=== PATIENT | male | born 1975 | race Caucasian/White ===

== ENCOUNTER 2016-08-19 08:18 | Inpatient (IN) | payer OTHER ==
--- NOTE | 2016-08-19 16:49 | PDOREHIP ---
Admission [facility] - Admission - 3 Day Assessment Period Admission Date/Day 1: 08/19/16 Day 2: 08/20/16 Day 3: 08/21/16 - Active Diagnoses Comorbidities and Co-existing Conditions at Admission: 79511. None of the Above - Skin Conditions Unhealed Pressure Ulcer (1 or more/Stage 1 or >)-Admission: 0. No
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
[2016-08-19] MEDS: ACETAMINOPHEN 325 MG TAB PO SCH (18:36)
[2016-08-19] MEDS: ATORVASTATIN CALCIUM 20 MG TAB PO SCH (21:28)
[2016-08-19] MEDS: LORazepam 0.5 MG TAB PO PRN (22:11)
[2016-08-20] MEDS: ACETAMINOPHEN 325 MG TAB PO SCH ×3 (06:55→13:10)
[2016-08-20] MEDS: ENOXAPARIN 40 MG/0.4 ML SYR SC SCH (08:37)
--- NOTE | 2016-08-20 11:01 | SOAPPROG ---
SOAP Progress Note Assessment/Plan: Assessment: * Cerebrovascular accident in the right caudate, centrum semiovale, internal capsule and basal ganglia on 08/15 or 08/16/2016, with left-sided weakness. Physical and occupational therapies to optimize mobility and activities of daily living. * Possible cognitive involvement to be assessed and treated per Speech and Language Pathology. * Polycythemia. He received phlebotomy in the hospital but had a rapid return to his polycythemic state. Risk for thromboembolism is addressed with aspirin. Could be due to R-L shunt.. Check overnight oximetry to evaluate for hypoxia. Though he is a muscular man, he shows no other signs of androgen excess, including no acne. * Psllm-rl-xspd shunt in the atrium. Follow up with Cardiology after discharge to consider closure. * Dyslipidemia. Continue simvastatin. * Anxiety and panic attacks. He is restarted on bupropion, with which he was treated before. Continue as-needed lorazepam dose for him. He will have assessment by Social Work. If he has recurrent panic attacks, would consider initiating an SSRI rather than bupropion. * Possible obstructive sleep apnea with history of snoring and moderately crowded airway. Advise sleep study after discharge. Monitor for hypoxia at night. * Deep venous thrombosis risk. He is at elevated risk. He has been prescribed enoxaparin on discharge from the hospital and this will be continued subcutaneous. As his mobility improves, it is anticipated that the enoxaparin will be discontinued. 08/20/16 11:36 Subjective: Reports panic attack last night. he was goven a dose of lorazepam and then he slept, though he thinks he had nightmares. Lovely gorggy in AM but now feels better. Ambulated with PT. Objective: Vital Signs Temp Pulse Resp BP Pulse Ox 36.6 C 60 18 107/62 96 08/20/16 07:43 08/20/16 07:43 08/20/16 07:43 08/20/16 07:43 08/20/16 07:43 08/19/16 08/20/16 08/21/16 05:59 05:59 05:59 Intake Total 700 100 Balance 700 100 Physical Exam - Physical Exam General Appearance: WD/WN, alert, no apparent distress Respiratory: normal breath sounds, No crackles, No rhonchi, No wheezing Cardiac/Chest: regular rate, rhythm, No edema Skin: normal color, warm/dry Neuro/Psych: alert, normal mood/affect, oriented x 3, other (Mild ataxia LUE) ICD10 Worksheet Patient Problems: Problems Problem Status Onset 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
[2016-08-20] MEDS ORDERED: ACETAMINOPHEN 325 MG TAB PO PRN (12:12)
[2016-08-20] MEDS: ATORVASTATIN CALCIUM 20 MG TAB PO SCH (21:11)
[2016-08-20] MEDS: LORazepam 0.5 MG TAB PO PRN (21:11)
[2016-08-21] MEDS: ENOXAPARIN 40 MG/0.4 ML SYR SC SCH (08:29)
--- NOTE | 2016-08-21 09:39 | SOAPPROG ---
SOAP Progress Note Assessment/Plan: Assessment: * Cerebrovascular accident in the right caudate, centrum semiovale, internal capsule and basal ganglia on 08/15 or 08/16/2016, with left-sided weakness. Initial FIM 91 of 08/21/16. Proprioceptive deficits and ataxia L leg. Not yet ready for I in room. Physical and occupational therapies to optimize mobility and activities of daily living. * Mild cognitive deficits with decreased attn, burton with fatigue. Continue Speech and Language Pathology. * Polycythemia. He received phlebotomy in the hospital but had a rapid return to his polycythemic state. Risk for thromboembolism is addressed with aspirin. Could be due to R-L shunt. No hypoxia on overnight oximetry; doubt EMILY. Though he is a muscular man, he shows no other signs of androgen excess, including no acne. Check H&H, erythropoetin level. * Ttuab-jb-[id number] shunt in the atrium. Follow up with Cardiology after discharge to consider closure. * Dyslipidemia. Continue simvastatin. * Anxiety and panic attacks. He is restarted on bupropion, with which he was treated before. Continue as-needed lorazepam dose for him. He will have assessment by Social Work. If he has recurrent panic attacks, would consider initiating an SSRI rather than bupropion. * Deep venous thrombosis risk. He is at elevated risk. He has been prescribed enoxaparin on discharge from the hospital and this will be continued subcutaneous. As his mobility improves, it is anticipated that the enoxaparin will be discontinued. Attended staffing, 15 min. 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 Anticipate discharge home with parents 08/26/16. 08/21/16 13:05 Subjective: No complaints. Slept well "after they turned of fthe bed;" says it was moving and shifting. Objective: Vital Signs Temp Pulse Resp BP Pulse Ox 36.6 C 63 18 122/77 H 97 08/21/16 07:09 08/21/16 07:09 08/21/16 07:09 08/21/16 07:09 08/21/16 07:09 08/20/16 08/21/16 08/22/16 05:59 05:59 05:59 Intake Total 700 574 240 Balance 700 574 240 - Time Spent With Patient Time Spent With Patient: Greater than 35 minutes floor time today, including more than 50% of time in coordination of care during staffing meeting, and counseling patient. Physical Exam - Physical Exam General Appearance: WD/WN, alert, no apparent distress Respiratory: normal breath sounds, No crackles, No rhonchi, No wheezing Cardiac/Chest: regular rate, rhythm, No edema, No diastolic murmur, No systolic murmur Skin: normal color, warm/dry Neuro/Psych: alert, normal mood/affect, oriented x 3, abnormal gait (Slightly ataxic, slow, excessive sway) ICD10 Worksheet Patient Problems: Problems Problem Status Onset 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
[2016-08-21] MEDS: buPROPion XL 150 MG TAB PO SCH (10:56)
[2016-08-21] MEDS: ASPIRIN EC 81 MG TAB PO SCH (10:56)
[2016-08-21 11:28] LABS: HEMATOCRIT 49.9 % (40.0-51.0); HEMOGLOBIN 17.7 g/dL (13.7-17.5)
[2016-08-21] MEDS: LORazepam 0.5 MG TAB PO PRN (20:41)
[2016-08-21] MEDS: ATORVASTATIN CALCIUM 20 MG TAB PO SCH (20:41)
[2016-08-22] MEDS: ASPIRIN EC 81 MG TAB PO SCH (07:52)
[2016-08-22] MEDS: ENOXAPARIN 40 MG/0.4 ML SYR SC SCH (07:52)
[2016-08-22] MEDS: buPROPion XL 150 MG TAB PO SCH (07:52)
--- NOTE | 2016-08-22 11:57 | SOAPPROG ---
SOAP Progress Note Assessment/Plan: Assessment: 40-year-old male status post a stroke possibly due to an intra-arterial shunt, with polycythemia of unclear etiology and a PFO. Has decreased proprioception and strength in the left side and cognitive deficits. Infarct location demonstrated on MRI in the right posterior basal ganglia, internal capsule, and Centrum Simiovale, and the right caudate head. today's update left-sided sensory symptoms appear to have been present at the time of his initial presentation, documented in notes reviewed from his original inpatient history and physical that showed the presence of paresthesias. Given his overall improving clinical picture including improving strength, cognition, and coordination, we will monitor clinically and not get a follow-up MRI yet. If you were to have worsening symptoms or new absence of sensation, we would obtain an MRI to look for additional stroke. Also prescribing trazodone QHS for insomnia, worked previously for him, and counseled him to use ativan sparingly as it can contribute to poor sleep. All medical issues are new to this provider, this is the first time I'm seeing the patient. I reviewed the outside imaging reports and history and physical. * Cerebrovascular accident in the right caudate, centrum semiovale, internal capsule and basal ganglia on 08/15 or 08/16/2016, with left-sided weakness. Initial FIM 91 of 08/21/16. Proprioceptive deficits and ataxia L leg. Not yet ready for I in room. Physical and occupational therapies to optimize mobility and activities of daily living. Also noted to have some paresthesias in the left side. * Mild cognitive deficits with decreased attn, burton with fatigue. Continue Speech and Language Pathology. * Polycythemia. He received phlebotomy in the hospital but had a rapid return to his polycythemic state. Risk for thromboembolism is addressed with aspirin. Could be due to R-L shunt. No hypoxia on overnight oximetry; doubt EMILY. Though he is a muscular man, he shows no other signs of androgen excess, including no acne. Checking erythropoetin level. * Ajrnp-fu-uvyy shunt in the atrium. Follow up with Cardiology after discharge to consider closure. * Dyslipidemia. Continue simvastatin. * Anxiety and panic attacks. He is restarted on bupropion, with which he was treated before. Continue as-needed lorazepam dose for him. He will have assessment by Social Work. If he has recurrent panic attacks, would consider initiating an SSRI rather than bupropion. * Deep venous thrombosis risk. He is at elevated risk. He has been prescribed enoxaparin on discharge from the hospital and this will be continued subcutaneous. As his mobility improves, it is anticipated that the enoxaparin will be discontinued. Anticipate discharge home with parents 08/26/16. 08/22/16 11:52 Subjective: CC: Paresthesias No acute events overnight. The patient endorsed that he has had paresthesias most noticed since yesterday morning, associated with touch. He doesn't notice anything when nothing is touching the skin. He does not recall that he is had sensory changes related to the stroke. He notices it in his left leg, arm, and face. He notes that his sleep was fair, interrupted by bad dreams. Trazodone is been helpful for him in the past, he is taking Ativan PRN for anxiety and panic attacks. On review of the original history and physical from his acute care hospitalization it was noted that paresthesias were reported at that time, normal sensory exam though it was not detailed. Otherwise, no new numbness, tingling, weakness, chest pain, shortness of breath, or other new symptoms including any neurocognitive or communication impairments. Objective: Vital Signs Temp Pulse Resp BP Pulse Ox 37.1 C 69 15 119/71 97 08/22/16 08:00 08/22/16 08:00 08/22/16 08:00 08/22/16 08:00 08/22/16 08:00 Laboratory Results 08/21/16 10:40 08/21/16 08/22/16 08/23/16 05:59 05:59 05:59 Intake Total 574 877 236 Balance 574 877 236 Physical Exam - Physical Exam General Appearance: WD/WN, alert, no apparent distress, other (muscular build) EENT: PERRL/EOMI, No scleral icterus (R), No scleral icterus (L), No anisocoria Respiratory: lungs clear, normal breath sounds, No respiratory distress, No accessory muscle use Cardiac/Chest: normal peripheral pulses, regular rate, rhythm, No edema Abdomen: normal bowel sounds, soft Skin: normal color, warm/dry, No cyanosis Neuro/Psych: alert, normal mood/affect, oriented x 3, 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
[2016-08-22] MEDS: ATORVASTATIN CALCIUM 20 MG TAB PO SCH (22:50)
[2016-08-22] MEDS: traZODone 50 MG TAB PO SCH (22:51)
[2016-08-23] MEDS: buPROPion XL 150 MG TAB PO SCH (08:30)
[2016-08-23] MEDS: ASPIRIN EC 81 MG TAB PO SCH (08:30)
[2016-08-23] MEDS: ENOXAPARIN 40 MG/0.4 ML SYR SC SCH (08:31)
[2016-08-23] MEDS ORDERED: ALBUTEROL 60 PUFFS/8 GM MDI IH PRN (11:43)
--- NOTE | 2016-08-23 11:49 | SOAPPROG ---
SOAP Progress Note Assessment/Plan: Assessment: 40-year-old male status post a stroke possibly due to an intra-arterial shunt, with polycythemia of unclear etiology and a PFO. Has decreased proprioception and strength in the left side and cognitive deficits. Infarct location demonstrated on MRI in the right posterior basal ganglia, internal capsule, and Centrum Simiovale, and the right caudate head. today's update For the patient's history of asthma, providing albuterol inhaler as needed. Otherwise, he is pretty spitting on therapies, no new concerns. No new numbness or tingling on the left side as follow-up from the day before. Episode of shortness of breath last night was not associated with chest pain or other symptoms concerning for DVT or PE. * Cerebrovascular accident in the right caudate, centrum semiovale, internal capsule and basal ganglia on 08/15 or 08/16/2016, with left-sided weakness. Initial FIM 91 of 08/21/16. Proprioceptive deficits and ataxia L leg. Not yet ready for I in room. Physical and occupational therapies to optimize mobility and activities of daily living. Also noted to have some paresthesias in the left side. * Mild cognitive deficits with decreased attn, burton with fatigue. Continue Speech and Language Pathology. * Polycythemia. He received phlebotomy in the hospital but had a rapid return to his polycythemic state. Risk for thromboembolism is addressed with aspirin. Could be due to R-L shunt. No hypoxia on overnight oximetry; doubt EMILY. Though he is a muscular man, he shows no other signs of androgen excess, including no acne. EPO in normal range. * [id number] shunt in the atrium. Follow up with Cardiology after discharge to consider closure. * Dyslipidemia. Continue simvastatin. * Anxiety and panic attacks. He is restarted on bupropion, with which he was treated before. Continue as-needed lorazepam dose for him. He will have assessment by Social Work. If he has recurrent panic attacks, would consider initiating an SSRI rather than bupropion. * Deep venous thrombosis risk. He is at elevated risk. He has been prescribed enoxaparin on discharge from the hospital and this will be continued subcutaneous. As his mobility improves, it is anticipated that the enoxaparin will be discontinued. * History of asthma: Reports asthma as a child, was hospitalized then but not sense. He gets it mostly in the fall, uses albuterol inhaler only, no steroids. Anticipate discharge home with parents 08/26/16. 08/22/16 11:52 08/23/16 11:46 08/23/16 11:49 Subjective: CC: shortness of breath No acute events overnight. Patient did endorse an episode of shortness of breath consistent with his prior history of asthma that he reports. He reports that he was hospitalized as a child but has not been hospitalized since. He does not use steroids or other medications for asthma control. He primarily get the symptoms seasonally in the fall when the weather changes. He just uses albuterol inhaler as needed. Additionally he notes that he was on sildenafil as needed prior to admission, not taking regularly. Epopoetin was in the normal range. patient denies any current shortness of breath, chest pain, no new numbness to wing or weakness. Objective: Vital Signs Temp Pulse Resp BP Pulse Ox 36.7 C 63 12 102/62 94 08/23/16 07:33 08/23/16 07:33 08/23/16 07:33 08/23/16 07:33 08/23/16 07:33 Laboratory Results 08/21/16 10:40 08/22/16 08/23/16 08/24/16 05:59 05:59 05:59 Intake Total 877 1356 240 Balance 877 1356 240 Physical Exam - Physical Exam General Appearance: WD/WN, alert, no apparent distress Respiratory: chest non-tender, lungs clear, normal breath sounds, pleural rub, No respiratory distress, No accessory muscle use, No decreased breath sounds, No crackles, No rhonchi, No stridor, No wheezing, No prolonged expiration, No prolonged inspiration, No retractions Cardiac/Chest: normal peripheral pulses, regular rate, rhythm, No edema Skin: normal color, warm/dry, No cyanosis Extremities: swelling, No pedal edema Neuro/Psych: alert, normal mood/affect ICD10 Worksheet Patient Problems: Problems Problem Status Onset 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
[2016-08-23] MEDS: traZODone 50 MG TAB PO SCH (20:17)
[2016-08-23] MEDS: ATORVASTATIN CALCIUM 20 MG TAB PO SCH (20:18)
[2016-08-24] MEDS: LORazepam 0.5 MG TAB PO PRN (00:54)
[2016-08-24] MEDS: buPROPion XL 150 MG TAB PO SCH (09:40)
[2016-08-24] MEDS: ENOXAPARIN 40 MG/0.4 ML SYR SC SCH (09:40)
[2016-08-24] MEDS: ASPIRIN EC 81 MG TAB PO SCH (09:40)
--- NOTE | 2016-08-24 10:50 | SOAPPROG ---
SOAP Progress Note Assessment/Plan: Assessment: * Cerebrovascular accident in the right caudate, centrum semiovale, internal capsule and basal ganglia on 08/15 or 08/16/2016, with left-sided weakness. Initial FIM 91 of 08/21/16. Proprioceptive deficits and ataxia L leg. Has been advanced to I in room. Physical and occupational therapies to optimize mobility and activities of daily living. * Mild cognitive deficits with decreased attn, burton with fatigue. Continue Speech and Language Pathology. * Polycythemia. He received phlebotomy in the hospital but had a rapid return to his polycythemic state. Risk for thromboembolism is addressed with aspirin. Could be due to R-L shunt. No hypoxia on overnight oximetry; doubt EMILY. Improved on labs 08/21/16. Erythropoietin level normal. Unclear etiology. * Icppa-fl-[id number] shunt in the atrium. Follow up with Cardiology after discharge to consider closure. * Dyslipidemia. Continue simvastatin. * Anxiety and panic attacks. He is restarted on bupropion, with which he was treated before. Continue as-needed lorazepam dose for him; using rarely. He will have assessment by Social Work. If he has recurrent panic attacks, would consider initiating an SSRI rather than bupropion. * Deep venous thrombosis risk. Mobility is much improved and has been advanced to I in room. D/C enoxaparin starting 08/25/16. Anticipate discharge home with parents 08/26/16. 08/24/16 10:54 Subjective: Nightmare overnight in which he dreamed he was having a stroke. awoke with heart racing. Took lorazepam and resumed sleep. Has some tingling L face, arm and leg but does not want medication for it. Objective: Vital Signs Temp Pulse Resp BP Pulse Ox 36.8 C 66 15 113/63 92 08/24/16 08:00 08/24/16 08:00 08/24/16 08:00 08/24/16 09:38 08/24/16 08:00 Laboratory Results 08/21/16 10:40 08/23/16 08/24/16 08/25/16 05:59 05:59 05:59 Intake Total 1356 720 240 Balance 1356 720 240 Physical Exam - Physical Exam General Appearance: WD/WN, alert, no apparent distress Respiratory: No respiratory distress, No accessory muscle use Skin: normal color, warm/dry Neuro/Psych: no motor/sensory deficits, alert, normal mood/affect, oriented x 3 , other (Ambulates with trekking pole, accompanied by PT.) ICD10 Worksheet Patient Problems: Problems Problem Status Onset 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
[2016-08-24] MEDS: ATORVASTATIN CALCIUM 20 MG TAB PO SCH (20:08)
[2016-08-24] MEDS: traZODone 50 MG TAB PO SCH (20:13)
[2016-08-24] MEDS: ALBUTEROL 200 PUFFS/18 GM MDI IH PRN (23:37)
--- NOTE | 2016-08-25 08:15 | SOAPPROG ---
SOAP Progress Note Assessment/Plan: Assessment: 40-year-old male status post a stroke possibly due to an intra-arterial shunt, with polycythemia of unclear etiology and a PFO. Has decreased proprioception and strength in the left side and cognitive deficits. Infarct location demonstrated on MRI in the right posterior basal ganglia, internal capsule, and Centrum Simiovale, and the right caudate head. today's update Doing well, plan for discharge tomorrow. A total of 40 minutes was spent on the floor in the care of the patient today, the majority of which is spent in the counseling and coordination of care regarding discharge planning. * Cerebrovascular accident in the right caudate, centrum semiovale, internal capsule and basal ganglia on 08/15 or 08/16/2016, with left-sided weakness. Initial FIM 91 of 08/21/16. Proprioceptive deficits and ataxia L leg. Not yet ready for I in room. Physical and occupational therapies to optimize mobility and activities of daily living. Also noted to have some paresthesias in the left side. * Mild cognitive deficits with decreased attn, burton with fatigue. Continue Speech and Language Pathology. * Polycythemia. He received phlebotomy in the hospital but had a rapid return to his polycythemic state. Risk for thromboembolism is addressed with aspirin. Could be due to R-L shunt. No hypoxia on overnight oximetry; doubt EMILY. Though he is a muscular man, he shows no other signs of androgen excess, including no acne. EPO in normal range. * Mtcvn-bd-[id number] shunt in the atrium. Follow up with Cardiology after discharge to consider closure. * Dyslipidemia. Continue simvastatin. * Anxiety and panic attacks. He is restarted on bupropion, with which he was treated before. Continue as-needed lorazepam dose for him. He will have assessment by Social Work. If he has recurrent panic attacks, would consider initiating an SSRI rather than bupropion. * Deep venous thrombosis risk. He is at elevated risk. He has been prescribed enoxaparin on discharge from the hospital and this will be continued subcutaneous. As his mobility improves, it is anticipated that the enoxaparin will be discontinued. * History of asthma: Reports asthma as a child, was hospitalized then but not sense. He gets it mostly in the fall, uses albuterol inhaler only, no steroids. Anticipate discharge home with parents 08/26/16. Will need follow up with cardiology (PFO closure) and hematology (polycythemia) as well as PCP. 08/22/16 11:52 08/23/16 11:46 08/23/16 11:49 08/25/16 08:13 08/25/16 08:46 Subjective: CC: dc planning No acute events overnight. Patient was working with occupational therapy this morning on safety in the kitchen. Plan for discharge tomorrow. patient does not serve the name of his PCP, will get that information. Also he's not sure of any follow-up needs. He's looking for to going home, but anxious. Denies any new shortness of breath or chest pain, no new numbness, tingling, or weakness. Objective: Vital Signs Temp Pulse Resp BP Pulse Ox 36.8 C 58 L 15 113/63 96 08/24/16 08:00 08/24/16 23:41 08/24/16 08:00 08/24/16 09:38 08/24/16 23:41 Laboratory Results 08/21/16 10:40 08/24/16 08/25/16 08/26/16 05:59 05:59 05:59 Intake Total 720 640 Balance 720 640 Physical Exam - Physical Exam General Appearance: WD/WN, alert, no apparent distress EENT: scleral icterus (L), No scleral icterus (R) Respiratory: lungs clear, normal breath sounds, No respiratory distress, No accessory muscle use Cardiac/Chest: normal peripheral pulses, regular rate, rhythm, No edema Skin: normal color, warm/dry, No cyanosis Extremities: No pedal edema, No swelling Neuro/Psych: alert, normal mood/affect (fair eye contact, good mood but a bit anxious) ICD10 Worksheet Patient Problems: Problems Problem Status Onset 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
[2016-08-25] MEDS: ASPIRIN EC 81 MG TAB PO SCH (08:26)
[2016-08-25] MEDS: buPROPion XL 150 MG TAB PO SCH (08:26)
--- NOTE | 2016-08-25 08:33 | PDOREHIP ---
Admission [facility] - Admission - 3 Day Assessment Period Admission Date/Day 1: 08/19/16 Day 2: 08/20/16 Day 3: 08/21/16 Discharge [facility] - Discharge - 3 Day Assessment Period 2 Days Prior to Anticipated Discharge Date: 08/24/16 1 Day Prior to Anticipated Discharge Date: 08/25/16 Anticipated Discharge Date: 08/26/16 - Discharge Skin Conditions Unhealed Pressure Ulcer (1 or more/Stage 1 or >)-Discharge: 0. No
--- NOTE | 2016-08-25 09:43 | SOAPPROG ---
SOAP Progress Note Assessment/Plan: Assessment: 40-year-old male status post a stroke possibly due to an intra-arterial shunt, with polycythemia of unclear etiology and a PFO. Has decreased proprioception and strength in the left side and cognitive deficits. Infarct location demonstrated on MRI in the right posterior basal ganglia, internal capsule, and Centrum Simiovale, and the right caudate head. today's update Doing well, plan for discharge tomorrow. A total of 40 minutes was spent on the floor in the care of the patient today, the majority of which is spent in the counseling and coordination of care regarding discharge planning. * Cerebrovascular accident in the right caudate, centrum semiovale, internal capsule and basal ganglia on 08/15 or 08/16/2016, with left-sided weakness. Initial FIM 91 of 08/21/16. Proprioceptive deficits and ataxia L leg. Not yet ready for I in room. Physical and occupational therapies to optimize mobility and activities of daily living. Also noted to have some paresthesias in the left side. * Mild cognitive deficits with decreased attn, burton with fatigue. Continue Speech and Language Pathology. * Polycythemia. He received phlebotomy in the hospital but had a rapid return to his polycythemic state. Risk for thromboembolism is addressed with aspirin. Could be due to R-L shunt. No hypoxia on overnight oximetry; doubt EMILY. Though he is a muscular man, he shows no other signs of androgen excess, including no acne. EPO in normal range. * [id number]-rn-[id number] shunt in the atrium. Follow up with Cardiology after discharge to consider closure. * Dyslipidemia. Continue simvastatin. * Anxiety and panic attacks. He is restarted on bupropion, with which he was treated before. Continue as-needed lorazepam dose for him. He will have assessment by Social Work. If he has recurrent panic attacks, would consider initiating an SSRI rather than bupropion. * Deep venous thrombosis risk. He is at elevated risk. He has been prescribed enoxaparin on discharge from the hospital and this will be continued subcutaneous. As his mobility improves, it is anticipated that the enoxaparin will be discontinued. * History of asthma: Reports asthma as a child, was hospitalized then but not sense. He gets it mostly in the fall, uses albuterol inhaler only, no steroids. Anticipate discharge home with parents 08/26/16. Will need follow up with cardiology (PFO closure) and hematology (polycythemia) as well as PCP. 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
[2016-08-25 09:58] VITALS: RESP 16; O2SAT 93
[2016-08-25] MEDS: ALBUTEROL 200 PUFFS/18 GM MDI IH PRN (19:15)
[2016-08-25] MEDS: ATORVASTATIN CALCIUM 20 MG TAB PO SCH (20:20)
[2016-08-25] MEDS: traZODone 50 MG TAB PO SCH (20:23)
[2016-08-25] MEDS: LORazepam 0.5 MG TAB PO PRN (23:32)
[2016-08-26 07:54] VITALS: BP 108/61; PULSE 57; TEMP 98.1
[2016-08-26] MEDS: buPROPion XL 150 MG TAB PO SCH (08:44)
[2016-08-26] MEDS: ASPIRIN EC 81 MG TAB PO SCH (08:44)
--- NOTE | 2016-08-27 04:40 | GDS ---
[f rep st] DISCHARGE SUMMARY ADMITTING DIAGNOSIS: Cerebrovascular accident of the right caudate, centrum semiovale, internal capsule, and basal ganglia with left-sided weakness. DISCHARGE DIAGNOSES: 1. Cerebrovascular accident of the right caudate, centrum semiovale, internal capsule, and basal ganglia with left-sided weakness. 2. Polycythemia. CONSULTATIONS: There were none. PROCEDURES: There were none. COMPLICATIONS: There were none. HISTORY AND HOSPITAL COURSE: The patient suffered a cerebrovascular accident on 08/15/2016 or 08/16/2016. He presented to [facility] with acute left-sided paralysis on 08/16/2016. He did not know exactly when it had begun, so he was not a candidate for thrombolytics. An echocardiogram was done, which showed a moderate right to left atrial shunt. There was no DVT on ultrasound of his legs, so an embolic source was not identified. A hypercoagulable panel was drawn. The results have not available during his rehabilitation stay. He was noted to be polycythemic. His hemoglobin was 19.1 and his hematocrit was 55.1, and he had dyslipidemia with an LDL of 171. He was begun on aspirin and atorvastatin. He had improvement in function with return of movement to his left upper and lower extremities and was appropriate for inpatient rehabilitation. He did well in rehabilitation. He was noted to have a proprioceptive deficit and ataxia to the left leg but was able to achieve independence in his room and on the unit through physical and occupational therapies. He was noted to have mild cognitive deficits with decreased attention, especially when he was fatigued. It was not clear whether this was due to his stroke or related to a prior history of traumatic brain injury. He was polycythemic. Follow-up labs during his rehabilitation stay showed improvement with hemoglobin of 17.7 and hematocrit of 49.9 on 08/21/2016. An erythropoietin level was checked to evaluate for an etiology, and it was normal at 8.0, with the range of normal being 2.6 to 18.5 harmeet-international units/mL. He had an overnight oximetry study to evaluate for hypoxemia, which might have driven the polycythemia, and he did not have hypoxemia overnight. He had anxiety and panic attacks. Prior to his stroke, he was treated with bupropion, which was restarted in the rehabilitation unit. He also received as- needed lorazepam. PHYSICAL EXAMINATION: VITAL SIGNS: On the day of discharge, blood pressure is 108/61, heart rate is 57, respiratory rate is 16, oxygen saturation is 93% on room air, temperature is 36.7 degrees centigrade. GENERAL: This is a well- nourished, well-developed man, dressed in street clothes, cooperative, and in no acute distress. HEENT: Extraocular movements are intact. Pupils are equal , round, and reactive to light. Mucous membranes are moist. Dentition is in good condition. NECK: Supple. HEART: Regular rate and rhythm with no murmurs , rubs, or gallops. LUNGS: Clear to auscultation bilaterally. ABDOMEN: Soft , nontender, nondistended with normoactive bowel sounds. EXTREMITIES: There is no cyanosis, clubbing, or edema. NEUROLOGIC: He is alert and oriented x3. Cranial nerves 2-12 are grossly intact. There is no focal weakness. Sensation is intact to light touch. Gait reveals increased sway and he is somewhat tentative in his ambulation, but overall otherwise gait is within normal limits. DISCHARGE PLAN: Condition upon discharge is good. Activity is ad giovanna. Date of next appointment: He is to follow up with Hematology, Dr. Shah, on 2016 regarding his polycythemia, with [facility] nurse practitioner, Sasha Spence, regarding the [id number] shunt in his atrium, and with primary care provider, Jerica Elizabeth. MEDICATIONS AT DISCHARGE: 1. Acetaminophen 650 mg p.o. q.6 hours p.r.n. 2. Albuterol metered-dose inhaler 2 puffs q.4 hours p.r.n. 3. Aspirin 81 mg p.o. q. day. 4. Atorvastatin 20 mg p.o. q.h.s. 5. Bupropion 300 mg p.o. q. day. 6. Lorazepam 0.5 mg p.o. q.4 hours p.r.n. 7. Trazodone 50 mg p.o. q.h.s. ISSUES TO BE ADDRESSED AT FOLLOWUP: 1. Functional status. He will continue working with Speech and Language Pathology regarding his cognition and towards return to work. Additionally, he will be evaluated by occupational and physical therapies, and he can follow up with his primary care provider regarding these issues. 2. Atrial [id number] shunt. He will follow up with the [facility] regarding possible closure. 3. Polycythemia, improved during his stay. He will follow up with able bodied seaman , Dr. Hair Shah. Copy requested to: Dr. Jerica Elizabeth /[id number]/MODL MTDD
== END 2016-08-26 12:24 | disposition home or self-care (01) | DRG 57 ==
LOC: BREH 15:44
PROVIDERS: ADMIT Internal Medicine; ATTEND Internal Medicine
PROC: F08Z7ZZ Vocational Activities and Functional Community or Work Reintegration Skills Treatment (ICD-10-PCS; principal; 2016-08-19)
PROC: F07M3ZZ Motor Function Treatment of Musculoskeletal System - Whole Body (ICD-10-PCS; principal; 2016-08-19)
PROC: F0636ZZ Communicative/Cognitive Integration Skills Treatment of Neurological System - Whole Body (ICD-10-PCS; principal; 2016-08-19)
DX: I69.354 Hemiplegia and hemiparesis following cerebral infarction affecting left non-dominant side (principal); Q21.1 Atrial septal defect; D75.1 Secondary polycythemia; E78.5 Hyperlipidemia, unspecified; F41.9 Anxiety disorder, unspecified; F41.0 Panic disorder [episodic paroxysmal anxiety]; G47.33 Obstructive sleep apnea (adult) (pediatric)
CPT/HCPCS: 82668-90; 92507-GN; 92522-GN; 92526-GN; 92610-GN; 97110-GO; 97110-GP; 97112-GP; 97116-GP; 97161-GP; 97166-GO; 97530-GO; 97532-GO; 97535-GO; J1650

== ENCOUNTER 2016-09-15 21:59 | Emergency (ER) | payer OTHER ==
[2016-09-15 22:07] VITALS: TEMP 97.7
[2016-09-15 22:26] LABS: % IMMATURE GRANULYOCYTES 0.2 % (0.0-1.1); ABSOLUTE IMMATURE GRANULOCYTES 0.02 10^3/uL (0.00-0.10); ADD DIFF? NO; ADD MORPH? NO; ADD SCAN? NO; ATYPICAL LYMPHOCYTE FLAG 0 (0-99); FRAGMENT RBC FLAG 0 (0-99); HEMATOCRIT 50.2 % (40.0-51.0); HEMOGLOBIN 17.8 g/dL (13.7-17.5); LEFT SHIFT FLG 0 (0-99); LIPEMIA HEMOLYSIS FLAG 90 (0-99); MEAN CELL HEMOGLOBIN 29.1 pg (27.9-34.1); MEAN CELL HEMOGLOBIN CONCENTR. 35.5 g/dL (32.4-36.7); MEAN PLATELET VOLUME 10.2 fL (8.7-11.7); PLATELET CLUMPS FLAG 0 (0-99); PLATELET COUNT 180 10^3/uL (150-400); RED BLOOD CELL COUNT 6.12 10^6/uL (4.40-6.38); RED CELL DISTRIBUTION WIDTH 12.3 % (11.5-15.2)
[2016-09-15 22:34] LABS: INR 1.11 (0.83-1.16); PROTIME(PATIENT) 14.2 SEC (12.0-15.0)
[2016-09-15 22:35] LABS: APTT 33.7 SEC (23.0-38.0)
[2016-09-15 22:48] LABS: ANION GAP 11 mEq/L (8-16); CALCIUM 9.1 mg/dL (8.5-10.4); CARBON DIOXIDE 20 mEq/l (22-31); CHLORIDE 109 mEq/L (97-110); CREATININE 1.2 mg/dL (0.7-1.3); GLOMERULAR FILTRATION RATE > 60; GLUCOSE 74 mg/dL (70-100); POTASSIUM 3.9 mEq/L (3.5-5.2); SODIUM 140 mEq/L (134-144)
[2016-09-15 23:19] VITALS: RESP 16
--- NOTE | 2016-09-15 23:43 | EDPHY ---
H & P Stated Complaint: facial droop noted starting yesterday, had a CVA august 16 Time Seen by Provider: 09/15/16 22:14 HPI/ROS: HPI The patient presents with left-sided facial droop which became worse yesterday. He has had symptoms for more than 24 hours now. They started suddenly and he 1st noticed them when he looked in the mirror and thought that his smile was asymmetric. He does not have any weakness of his left arm or leg. He has been working with speech therapy and they have been using a muscle stimulator on his face which he believes may have tired the facial muscles. He is taking aspirin currently He has a history of a CVA and was admitted to [facility] on August 16, presenting with left-sided paralysis. He was outside of the tPA window. MRI of his brain was performed that showed a small acute infarct of the right posterior basal ganglia, internal capsule and centrum semiovale. Further evaluation revealed elevated LDL, echo showing PF 0, polycythemia which was treated with therapeutic phlebotomy. The patient was discharged to rehab and has now been recovering at home. He says he is feeling some fogginess, though this is been common for him after the stroke.. REVIEW OF SYSTEMS Constitutional: No fever, no chills. Eyes: No discharge. ENT: No sore throat. Cardiovascular: No chest pain, no palpitations. Respiratory: No cough, no shortness of breath. Gastrointestinal: No abdominal pain, no vomiting. Genitourinary: No hematuria. Musculoskeletal: No back pain. Skin: No rashes. Neurological: No headache. PMHx: History of CVA as above Soc Hx: Resides with his parents PHYSICAL General Appearance: Alert, no distress Eyes: Pupils equal and round no pallor or injection ENT, Mouth: Mucous membranes moist Respiratory: There are no retractions, lungs are clear to auscultation Cardiovascular: Regular rate and rhythm Gastrointestinal: Abdomen is soft and non-tender, no masses, bowel sounds normal Neurological: Alert and oriented x3, cranial nerves 2-12 intact except for slight left-sided facial droop which does not involve eyebrow raise, 5/5 strength of upper and lower extremities which is symmetric Skin: Warm and dry, no rashes Musculoskeletal: Neck is supple non tender Extremities: symmetrical, full range of motion Psychiatric: Patient is oriented X 3, there is no agitation Source: Patient, Family, Old records Exam Limitations: No limitations - Personal History Current Tetanus Diphtheria and Acellular Pertussis (TDAP): Unsure Tetanus Vaccine Date: < 10 YEARS - Medical/Surgical History Hx Asthma: Yes Hx Chronic Respiratory Disease: No Hx Diabetes: No Hx Cardiac Disease: Yes Hx Renal Disease: No Hx Cirrhosis: No Hx Alcoholism: No Hx HIV/AIDS: No Hx Splenectomy or Spleen Trauma: No Other PMH: CVA 08/2016, PFO - Social History Smoking Status: Never smoked Constitutional: Initial Vital Signs Temperature (C) 36.5 C 09/15/16 22:04 Heart Rate 77 09/15/16 22:04 Respiratory Rate 18 09/15/16 22:04 Blood Pressure 107/75 09/15/16 22:04 O2 Sat (%) 93 09/15/16 22:04 O2 Delivery Mode Room Air Allergies/Adverse Reactions: No Known Allergies Allergy (Unverified 05/29/12 22:11) Home Medications: Medication Instructions Recorded Albuterol [Ventolin Hfa Inhaler] 2 puffs IH Q4HRS PRN #1 mdi 08/25/16 Aspirin EC [Aspirin EC 81 mg (*)] 81 mg PO DAILY #0 tab 08/25/16 Atorvastatin Calcium [Lipitor 20 20 mg PO HS #30 tab 08/25/16 mg (*)] buPROPion XL [Wellbutrin 150mg XL] 300 mg PO DAILY #60 tab 08/25/16 Medical Decision Making - Diagnostics Imaging Results: Imaging Impressions Head CT 09/15/16 22:15 Impression: 1. Hypodense subacute infarct right basal ganglia. 2. No additional evidence for intracranial infarction, mass, or hemorrhage. 3. Nonspecific maxillary and ethmoid sinus disease. If symptoms worsen, additional imaging may be necessary. Findings discussed with Tiffanie Mcghee MD at 22:49 hour, 09/15/2016. MRI brain demonstrates subacute infarct right basal ganglia with no acute hemorrhage or areas of infarction, discussed with Dr. Weems of Radiology. 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 Symptoms have been present for more than 24 hours, thus not tPA candidate. On exam he does have mild left-sided droop. He previously had left arm and leg weakness with his CVA 1 month ago which is now resolved Differential diagnosis includes intracranial hemorrhage related to anticoagulant or aspirin use, recurrent ischemic CVA related to PFO or polycythemia, brain mass. In the emergency room, CT scan of head was performed which showed subacute acute stroke of the right basal ganglia consistent likely with prior CVA. I consulted with [facility] and we discussed the case. It is recommended to obtain an MRI of the brain to see if there is any signs of acute stroke. If so, the patient will likely require admission for evaluation for PFO repair. If this is unremarkable showing no acute changes, then the patient is likely suitable for discharge with continued outpatient workup. The patient is currently following with Cardiology, Hematology, unsure about Neurology. MRI was performed showing no acute findings. Comparing the MRI from August 16 admission there seems to be no significant changes to suggest increased ischemia or new onset hemorrhage. Given this information, the patient seems suitable for outpatient continued management and has follow-up with hematology. I was able to check his discharge summary and found the neurologist he is supposed to follow up Dr. Alcantar. I have instructed him to call to make an appointment in the next 1-2 days. - Data Points Laboratory Results: Laboratory Results 09/15/16 22:15 09/15/16 22:15 09/15/16 09/15/16 09/15/16 22:15 22:15 22:15 WBC 8.78 10^3/uL 10^3/uL (3.80-9.50) RBC 6.12 10^6/uL 10^6/uL (4.40-6.38) Hgb 17.8 g/dL H g/dL (13.7-17.5) Hct 50.2 % % (40.0-51.0) MCV 82.0 fL fL (81.5-99.8) MCH 29.1 pg pg (27.9-34.1) MCHC 35.5 g/dL g/dL (32.4-36.7) RDW 12.3 % % (11.5-15.2) Plt Count 180 10^3/uL 10^3/uL (150-400) MPV 10.2 fL fL (8.7-11.7) Neut % (Auto) 44.0 % % (39.3-74.2) Lymph % (Auto) 36.3 % % (15.0-45.0) Floyd % (Auto) 11.8 % % (4.5-13.0) Eos % (Auto) 6.9 % % (0.6-7.6) Baso % (Auto) 0.8 % % (0.3-1.7) Nucleat RBC Rel Count 0.0 % % (0.0-0.2) Absolute Neuts (auto) 3.85 10^3/uL 10^3/uL (1.70-6.50) Absolute Lymphs (auto) 3.19 10^3/uL H 10^3/uL (1.00-3.00) Absolute Monos (auto) 1.04 10^3/uL H 10^3/uL (0.30-0.80) Absolute Eos (auto) 0.61 10^3/uL H 10^3/uL (0.03-0.40) Absolute Basos (auto) 0.07 10^3/uL 10^3/uL (0.02-0.10) Absolute Nucleated RBC 0.00 10^3/uL 10^3/uL (0-0.01) Immature Gran % 0.2 % % (0.0-1.1) Immature Gran # 0.02 10^3/uL 10^3/uL (0.00-0.10) PT 14.2 SEC SEC (12.0-15.0) INR 1.11 (0.83-1.16) APTT 33.7 SEC SEC (23.0-38.0) Sodium 140 mEq/L mEq/L (134-144) Potassium 3.9 mEq/L mEq/L (3.5-5.2) Chloride 109 mEq/L mEq/L (97-110) Carbon Dioxide 20 mEq/l L mEq/l (22-31) Anion Gap 11 mEq/L mEq/L (8-16) BUN 16 mg/dL mg/dL (7-23) Creatinine 1.2 mg/dL mg/dL (0.7-1.3) Estimated GFR > 60 Glucose 74 mg/dL mg/dL (70-100) Calcium 9.1 mg/dL mg/dL (8.5-10.4) Medications Given: Discontinued Medications Lorazepam (Ativan Injection) 0.5 mg IVP EDNOW ONE Stop: 09/16/16 00:07 Last Admin: 09/16/16 02:51 Dose: Not Given Departure - Departure Disposition: Home, Routine, Self-Care Clinical Impression: Facial droop, History of CVA (cerebrovascular accident) Condition: Good Instructions: Self Care Measures After a Stroke (ED) Additional Instructions: Your MRI today shows that there are no acute changes due to bleeding or poor blood flow to the brain to explain the facial droop. You need to have follow- up with Neurology as well as Hematology as planned. Please check in with your primary care doctor tomorrow.. Referrals: PAM ANN [Other] - As per Instructions Raghu Alcantar MD [Medical Doctor] - As per Instructions
[2016-09-16] MEDS ORDERED: LORazepam 2 MG/ML INJ IVP ONE (00:06)
[2016-09-16] MEDS ORDERED: GADOBUTROL 10 ML VIAL IVP ONE (00:41)
[2016-09-16 02:54] VITALS: BP 115/73; PULSE 53; O2SAT 96
== END 2016-09-16 03:02 | disposition home or self-care (01) ==
DX: R29.810 Facial weakness (principal); Z79.82 Long term (current) use of aspirin; Z86.73 Personal history of transient ischemic attack (TIA), and cerebral infarction without residual deficits
CPT/HCPCS: A9585; J2060